=== PATIENT | female | born 1985 | race Caucasian/White ===

== ENCOUNTER 2017-06-06 08:54 | Emergency (ER) | payer OTHER ==
[2017-06-06 09:01] VITALS: BP 103/76
--- NOTE | 2017-06-06 10:30 | UC ---
Respiratory Complaint HPI - HPI Summary HPI Summary: 31 Y/O female that presents with C/O dry cough that has lasted for approximately two weeks. Denies dyspnea, mucous production, fever, chills, throat pain or sinus pain or pressure. States cough is worse at night and after strenuous activity. No history of respiratory illnesses. Does state has history of seasonal allergies. Medications and PMH have been reviewed at this visit. - History of Current Complaint Chief Complaint: UCRespiratory Stated Complaint: URI Time Seen by Provider: 06/06/17 09:32 Hx Obtained From: Patient Hx Last Menstrual Period: 06/02/17 ?: No Onset/Duration: Gradual Onset, Still Present Timing: Intermittent Episodes Severity Initially: Mild Severity Currently: Mild Pain Intensity: 0 Pain Scale Used: 0-10 Numeric Character: Cough: Nonproductive Aggravating Factors: Allergens, Exertion, Recumbent Position Associated Signs And Symptoms: Positive: Negative Related History: Seasonal Allergies - Risk Factors Pulmonary Embolism Risk Factors: Negative Cardiac Risk Factors: Negative Pseudomonas Risk Factors: Negative Tuberculosis Risk Factors: Negative - Allergies/Home Medications Allergies/Adverse Reactions: Allergies Allergy/AdvReac Type Severity Reaction Status Date / Time No Known Allergies Allergy Verified 06/06/17 08:57 PMH/Surg Hx/FS Hx/Imm Hx Previously Healthy: Yes - Surgical History Surgical History: None - Social History Alcohol Use: Weekly Substance Use Type: None Smoking Status (MU): Never Smoked Tobacco Review of Systems Constitutional: Negative Skin: Negative Eyes: Negative ENT: Negative Respiratory: Cough Cardiovascular: Negative Gastrointestinal: Negative Genitourinary: Negative Motor: Negative Neurovascular: Negative Musculoskeletal: Negative Neurological: Negative Psychological: Negative Is Patient Immunocompromised?: No All Other Systems Reviewed And Are Negative: Yes Physical Exam Triage Information Reviewed: Yes Appearance: Well-Appearing Vital Signs: Initial Vital Signs Temp 98 F 06/06/17 08:58 Pulse 80 06/06/17 08:58 Resp 16 06/06/17 08:58 BP 103/76 06/06/17 08:58 Pulse Ox 100 06/06/17 08:58 Vital Signs Reviewed: Yes Eye Exam: Normal ENT Exam: Normal Dental Exam: Normal Neck exam: Normal Neck: Positive: Supple, Nontender, No Lymphadenopathy Respiratory Exam: Normal Respiratory: Positive: Lungs clear Cardiovascular Exam: Normal Cardiovascular: Positive: RRR Abdominal Exam: Normal Abdomen Description: Positive: Nontender Bowel Sounds: Positive: Present Musculoskeletal Exam: Normal Neurological Exam: Normal Psychological Exam: Normal Skin Exam: Normal UC Diagnostic Evaluation - Laboratory O2 Sat by Pulse Oximetry: 100 Respiratory Course/Dx - Differential Dx/Diagnosis Differential Diagnosis/HQI/PQRI: Bronchitis, Lower Resp Infection, Sinusitis Provider Diagnoses: Cough / seasonal allergies, Post nasal drip Discharge - Discharge Plan Condition: Stable Disposition: HOME Patient Education Materials: Rhinosinusitis (ED), Chronic Bronchitis (ED) Additional Instructions: Please take medications as needed. If cough continues for more than another week , you have fever or chills or experience shortness of breath please see your primary medical provider or return to the Urgent care.
== END 2017-06-06 10:39 | disposition home or self-care (01) ==
LOC: UCEAST 08:54
DX: J30.2 Other seasonal allergic rhinitis (principal); R05 Cough; R09.82 Postnasal drip
CPT/HCPCS: 99212; G0463